=== PATIENT | male | born 1945 | race Native Hawaiian/Other Pacific Islander ===

== ENCOUNTER 2019-06-24 18:53 | Emergency (ER) | payer OTHER ==
[~2019-06-24] VITALS: Ht 182.9 cm; Wt 79.4 kg
[2019-06-24 19:00] VITALS: TEMP 98.4
[2019-06-24] MEDS ORDERED: HYZAAR1 TA2 PO (19:23)
[2019-06-24 20:36] LABS: PLATELET COUNT 205 K/uL (142-355)
[2019-06-24 20:37] LABS: POTASSIUM 3.5 mmol/L (3.6-5.2)
[2019-06-24 21:40] VITALS: BP 141/59
== END 2019-06-24 21:30 | disposition home or self-care (01) ==
LOC: ED 18:53
PROVIDERS: Family Medicine
DX: H60.8X2 Other otitis externa, left ear (principal); I88.8 Other nonspecific lymphadenitis
CPT/HCPCS: 36415; 80053; 85027; 87651; 96372; 99283; J2930